=== PATIENT | male | born 2000 | race Caucasian/White ===

== ENCOUNTER 2025-04-10 07:25 | Emergency (ER) | payer BC, SELFPAY ==
[2025-04-10 07:48] VITALS: BP 147/80; PULSE 98; RESP 22; TEMP 36.7; O2SAT 99; BMI 27.9
--- NOTE | 2025-04-10 08:18 | CRLHL7_ITS ---
For Patients: As a result of the Century Cures Act, medical imaging exams and procedure reports are released immediately into your electronic medical record. You may view this report before your referring provider. If you have questions, please contact your health care provider. INDICATION: Chest pain. TECHNIQUE: Chest 2 views. COMPARISON: None FINDINGS: Tubes and devices: None. Lungs: Lungs are clear. No sign of infiltrate or mass. Pleura: No pleural effusion. No pneumothorax. Heart: Heart size and vasculature are normal in caliber and appearance. Faye and Mediastinum: No enlargement. Bones and soft tissues: No significant findings. IMPRESSION: Unremarkable chest. Dictated by Cody Sandoval MD @ 04/10/2025 8:39:57 AM (Electronically Signed)
--- NOTE | 2025-04-10 08:41 | ED_ITS ---
HPI - General Adult General Date Seen: 04/10/25 Chief complaint: Anxiety Stated complaint: Numbness, lightheaded Time Seen by Provider: 04/10/25 08:11 Source: patient Mode of arrival: ambulatory Limitations: no limitations History of Present Illness HPI narrative: Patient is a 25-year-old male presenting to emergency department for facial numbness, hand numbness, chest pain, shortness of breath,, lightheadedness. He states are he has a history of anxiety and was recently started anxiety medication week and half ago. Yesterday while he was driving he [place] felt short of breath and became tachypneic. Also notes he had numbness to his hands and face. That subsided and he was able go to work with no further issues. He states it occurred again and this time was worse. He states he was having chest pain along with it and felt lightheaded like he was going to pass out. He still states he feels mildly lightheaded but overall says symptoms are much improved. He states yesterday he was feeling anxious but today he denies anxiety. Has not noticed any fevers or chills. Denies symptoms like this before. No history of blood clots. No history of family clotting disorders. Denies history of her of recent surgeries, recent travel, cancer, hemoptysis, lower extremity swelling, hormone use. No family history of sudden unexpected . No other concerns noted at this time. Related Data Previous Rx's ?Medication ?Instructions ?Recorded hydroxyzine HCl 25 mg tablet 25 mg PO QID PRN #20 tabs 04/10/25 Allergies Allergy/AdvReac Type Severity Reaction Status Date / Time amoxicillin Allergy Intermediate Rash Verified 04/10/25 07:46 Review of Systems Status of ROS: Reports: 10 or more systems reviewed and unremarkable except as noted in History and below Exam Narrative: Exam Narrative: Const: Well-nourished, Well-developed, in mild distress Eyes: PERRL, no conjunctival injection, and symmetrical lids HENT: Atraumatic external nose and ears. Moist mucous membranes. Neck: Symmetric, trachea midline, No thyromegaly. CVS: RRR, No murmurs or gallops. Peripheral pulses 2+ and equal in all extremities RESP: Unlabored respiratory effort. Clear to auscultation bilaterally. GI: Nontender/Nondistended, No rebound or guarding. MSK:Extremities w/o deformity, Normal Active ROM Skin: Warm, Dry. No rashes or lesions. Neuro: Normal Muscle tone, No focal neurological deficits. Psych: Awake, Alert, & Oriented x3. Appropriate mood and affect. Const: Vital Signs, click to edit/add: Vital Signs - 24 hr 04/10/25 07:48 Temperature 98.1 F Pulse Rate [Pulse Oximeter] 98 Respiratory Rate 22 Blood Pressure [Ri ght Upper Arm] 147/80 H Pulse Oximetry 99 Oxygen Delivery Me thod Room Air Course Vital Signs Vital signs: Initial Vital Signs Temperature 98.1 F 04/10/25 07:48 Temperature Source Temporal Artery Scan 04/10/25 07:48 Pulse Rate 98 04/10/25 07:48 Respiratory Rate 22 04/10/25 07:48 Blood Pressure 147/80 H 04/10/25 07:48 Blood Pressure Mean 102 04/10/25 07:48 Pulse Oximetry 99 04/10/25 07:48 Oxygen Delivery Method Room Air 04/10/25 07:48 Vital Signs Temperature 98.1 F 04/10/25 07:48 Pulse Rate 98 04/10/25 07:48 Respiratory Rate 22 04/10/25 07:48 Blood Pressure 147/80 H 04/10/25 07:48 Pulse Oximetry 99 04/10/25 07:48 Oxygen Delivery Method Room Air 04/10/25 07:48 Temperature 98.1 F 04/10/25 07:48 Pulse Rate 98 04/10/25 07:48 Respiratory Rate 22 04/10/25 07:48 Blood Pressure 147/80 H 04/10/25 07:48 Pulse Oximetry 99 04/10/25 07:48 Oxygen Delivery Method Room Air 04/10/25 07:48 Medical Decision Making [facility] Narrative Medical decision making narrative: Patient is a 25-year-old male presenting for multiple complaints. His biggest concern was the facial numbness and hand numbness. That is improving. Considering this bilateral seems more likely related to hyperventilation and anxiety causing it. Low concern for intracranial or central nervous system issue. He also states he is having lightheadedness and chest pain. The differential diagnosis of chest pain is broad and includes common etiologies such as musculoskeletal strain, GERD, pneumonia, etc. More serious etiologies considered include PE, coronary artery disease, pneumothorax, aortic dissection, aortic aneurysm. Order EKG and troponin look for cardiac abnormalities. He is PERC negative and PE can not be ruled out. I have low concern for aortic dissection or aortic aneurysm with otherwise stable vital signs. Will do chest x-ray look for pneumonia or pneumothorax. Will also order CBC, BMP, magnesium, viral swabs. Chest x-ray returned showing no acute concerning abnormalities as interpreted by myself and the radiologist. EKG interpreted by myself shows no acute concerning abnormalities. Lab work returned showing no concerning abnormalities. Concerning chest pain started only few hours ago we will repeat the troponin at the 2 hour kimberly. Patient be signed out to my colleague. I do believe his symptoms were likely related to a panic attack based on his description. Will prescribe Vistaril. Lab Data Labs: Lab Results 04/10/25 04/10/25 Range/Units 08:18 08:40 WBC 10.07 (4.50-11.00) K/uL RBC 5.59 (4.30-5.90) m/uL Hgb 16.0 (13.5-17.5) gm/dL Hct 47.8 (37.0-53.0) % MCV 86 (80-100) fL MCH 29 (26-34) pg MCHC 34 (32-36) gm/dL RDW Coeff of Amairani 12.4 (11.5-15.5) % Plt Count 277 (140-440) K/uL Neut % (Auto) 87.1 H (42.0-72.0) % Lymph % (Auto) 7.1 L (20-44) % Lipscomb % (Auto) 5.2 (0.0-11.0) % Eos % (Auto) 0.0 (0.0-7.0) % Baso % (Auto) 0.2 (0.0-3.0) % Neut # (Auto) 8.80 H (1.7-7.0) K/uL Lymph # (Auto) 0.70 L (0.90-2.90) K/uL Lipscomb # (Auto) 0.50 (0.00-0.90) K/UL Eos # (Auto) 0.00 (0.00-0.50) K/uL Baso # (Auto) 0.02 (0.00-0.30) K/uL Abs Immat Gran (auto) 0.04 (0.00-0.30) K/uL Imm/Tot Granulo (auto) 0.4 % Sodium 141 (135-149) mmol/L Potassium 3.9 (3.6-5.1) mmol/L Chloride 107 (96-114) mmol/L Carbon Dioxide 24 (20-32) mmol/L Anion Gap 10 (7-15) mEq/L BUN 12 (5-24) mg/dL Creatinine 1.1 (0.5-1.5) mg/dL Estimated Creat Clear 123.76 Estimated GFR 96 ml/min Glucose 109 (60-115) mg/dL Calcium 9.8 (8.4-10.6) mg/dL Magnesium 2.0 (1.5-2.6) mg/dL POC Troponin I 0.01 (0.01-0.04) ng/ml Imaging Data Chest x-ray: Attestation: I have reviewed the pertinent imaging results. Radiologist's impression: Unremarkable chest. Dictated by Cody Sandoval MD @ 04/10/2025 8:39:57 AM ECG Data Attestation: I personally reviewed and interpreted this ECG as follows: Prior ECG tracings: not available for review Interpretation: Normal sinus rhythm with a rate of 93 beats per minute, normal intervals, normal axis, no ST or T-wave abnormalities. Discharge Plan Discharge Clinical Impression: Paresthesia, Atypical chest pain Patient Disposition: Home, Self-Care Condition: Stable Instructions: Noncardiac Chest Pain (ED), Panic Attack (ED) Additional Instructions: It seems likely her symptoms are related to a panic attack. I see no abnormalities on my exam. I will prescribe Vistaril which can help with panic attacks. If it does not help with his symptoms the recommend moving up your follow-up with your primary care provider about trying other medicines for panic attacks. Return to emergency department for new or worsening symptoms Prescriptions: New hydroxyzine HCl 25 mg tablet 25 mg PO QID PRNQty: 20 0RF Follow Up/Referrals: Provider,Not a Local [Primary Care Provider, Family Practice] Stand Alone Forms: [employer] Info Instructions
--- OUTSIDE RECORDS SUMMARY | 2025-04-10 08:50 | XMS_ITS | Clinical Summary ---
Author Organization [employer] [facility] Address [address] [place] [id number] Care Team Providers Care Professor Of Business Name Role Phone Moni Coronel MD Primary Care Provider + Allergies Active Allergy Reactions Criticality Noted Date Comments Amoxicillin *Unknown 09/06/2012 Medications azithromycin (ZITHROMAX) 250 mg tablet Take 2 tablets by mouth on day one, then take 1 tablet by mouth on days two through five. 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 60 tablet 04/30/2014 5:20 PM [employer]ING MACHINE OPERATOR 4 Active azithromycin (ZITHROMAX) 250 mg tablet Take 2 tablets by mouth on day 1, then take 1 tablet once daily on days 2 through 5. 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 30 tablet 07/11/2014 2:34 PM [employer] MACHINE OPERATOR 5 Active Adapalene 0.3 % gel Apply topically to affected area(s) at bedtime. 45 g 6 08/27/2014 3:13 PM CDT 5 Active trimethoprim-salcedo lfamethoxazole, 160-800 mg, (BACTRIM DS) tablet Take 1 tablet by mouth once daily. 60 tablet 6 09/20/2014 4:39 PM CDT 5 Active CONCERTA 36 mg Extended-Releas e tablet Take 1 tablet by mouth once daily in the morning. 30 tablet 08/10/2014 9:37 AM [employer] SE[employer] MACHINE OPERATOR 5 Active CONCERTA 36 mg Extended-Releas e tablet Take 1 tablet by mouth once daily. 30 tablet 10/05/2014 2:21 PM CDT 5 Active methylphenidate (CONCERTA) 36 mg Extended-Releas e tablet Take 1 tablet by mouth once daily in the morning. 30 tablet 02/18/2015 2:15 PM CDT 5 Active methylphenidate (CONCERTA) 36 mg Extended-Releas e tablet Take 1 tablet by mouth once daily in the morning. 30 tablet 03/27/2015 2:25 PM CDT 5 Active methylphenidate (CONCERTA) 36 mg Extended-Releas e tablet Take 1 tablet by mouth once daily in the morning. 30 tablet 05/08/2015 2:31 PM [facility] 5 Active citalopram (CELEXA) 20 mg tablet Take one-half tablet by mouth once daily for 7 days, then take 1 tablet once daily thereafter. 30 tablet 05/10/2015 10:40 AM [facility] 5 Active methylphenidate (CONCERTA) 18 mg Extended-Releas e tablet Take 1 tablet by mouth once daily in the morning along with a 27mg tablet. 30 tablet 05/10/2015 10:40 AM [facility] 5 Active methylphenidate (CONCERTA) 27 mg Extended-Releas e tablet Take 1 tablet by mouth once daily in the morning along with a 18mg tablet. 30 tablet 05/10/2015 10:40 AM [facility] 5 Active citalopram (CELEXA) 20 mg tablet Take 1 tablet by mouth once daily. 90 tablet 1 10/10/2015 2:01 PM CDT 5 Active methylphenidate (CONCERTA) 18 mg Extended-Releas e tablet Take 1 tablet by mouth once daily in the morning along with a 27mg tablet. 30 tablet 06/10/2015 2:04 PM [facility] 5 Active methylphenidate (CONCERTA) 27 mg Extended-Releas e tablet Take 1 tablet by mouth once daily in the morning along with a 18mg tablet. 30 tablet 06/10/2015 2:04 PM [facility] 5 Active methylphenidate (CONCERTA) 27 mg Extended-Releas e tablet Take 1 tablet by mouth once daily in the morning along with a 18mg tablet. 30 tablet 07/10/2015 2:18 PM [facility] 6 Active methylphenidate (CONCERTA) 18 mg Extended-Releas e tablet Take 1 tablet by mouth once daily in the morning along with a 27mg tablet. 30 tablet 07/10/2015 2:18 PM [facility] 6 Active methylphenidate (CONCERTA) 18 mg Extended-Releas e tablet Take 1 tablet by mouth once daily in the morning along with 27mg tablet. 30 tablet 08/08/2015 9:03 AM [facility] 6 Active methylphenidate (CONCERTA) 27 mg Extended-Releas e tablet Take 1 tablet by mouth once daily in the morning along with 18 mg tablet. 30 tablet 08/08/2015 9:03 AM [facility] 6 Active methylphenidate (CONCERTA) 27 mg Extended-Releas e tablet Take 1 tablet by mouth once daily in the morning with an 18 mg tablet. 30 tablet 09/09/2015 3:00 PM [facility] 6 Active methylphenidate (CONCERTA) 18 mg Extended-Releas e tablet Take 1 tablet by mouth once daily with a 27mg tablet in the morning. 30 tablet 09/09/2015 3:00 PM [facility] 6 Active methylphenidate (CONCERTA) 18 mg Extended-Releas e tablet Take 1 tablet by mouth once daily in the morning along with a 27 mg tablet. 30 tablet 10/10/2015 2:01 PM [facility] 6 Active methylphenidate (CONCERTA) 27 mg Extended-Releas e tablet Take 1 tablet by mouth once daily in the morning along with an 18 mg tablet. 30 tablet 10/10/2015 2:01 PM [facility] 6 Active methylphenidate (CONCERTA) 18 mg Extended-Releas e tablet Take 1 tablet by mouth each morning with 27 mg tablet. 30 tablet 01/16/2016 11:42 AM CDT 6 Active methylphenidate (CONCERTA) 27 mg Extended-Releas e tablet Take 1 tablet by mouth each morning with 18mg tablet 30 tablet 01/16/2016 11:42 AM CDT 6 Active azithromycin (ZITHROMAX) 250 mg tablet Take 2 tablets by mouth on day 1, then 1 tablet on days 2-5 As Directed for 5 days. 6 tablet 02/04/2016 9:59 AM CDT 6 Active methylphenidate (CONCERTA) 27 mg Extended-Releas e tablet Take 1 tablet by mouth once daily in the morning. 30 tablet 02/19/2016 9:02 AM T 6 Active methylphenidate (CONCERTA) 18 mg Extended-Releas e tablet Take 1 tablet by mouth once daily in the morning. 30 tablet 02/19/2016 9:02 AM T 6 Active citalopram (CELEXA) 20 mg tablet Take 1 tablet by mouth once daily. 90 tablet 1 09/01/2016 2:06 PM T 6 Active citalopram (CELEXA) 20 mg tablet Take 1 tablet by mouth once daily. 90 tablet 1 03/02/2017 3:05 PM T 7 Active methylphenidate HCl (CONCERTA) 18 mg Extended-Releas e tablet Take 1 tablet by mouth once daily along with a 27mg tablet. 30 tablet 03/02/2017 3:05 PM T 7 Active methylphenidate HCl (CONCERTA) 27 mg Extended-Releas e tablet Take 1 tablet by mouth once daily in the morning along with a 18mg tablet. 30 tablet 03/02/2017 3:05 PM T 7 Active citalopram (CELEXA) 40 mg tablet Take 1 tablet by mouth once daily for anxiety. 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 30 tablet 04/12/2017 4:06 PM [employer]ING MACHINE OPERATOR 7 Active FLUoxetine (PROZAC) 20 mg capsule Take 1 capsule by mouth once daily. 30 capsule 3 08/05/2017 2:50 PM [employer]ING MACHINE OPERATOR 7 Active methylphenidate HCl (RITALIN) 20 mg tablet Take 1 tablet by mouth once daily at 4pm to 5pm if needed for driving or homework. 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 30 capsule 2 10/28/2017 3:13 PM CDT 8 Active methylphenidate HCl (CONCERTA) 36 mg Extended-Releas e tablet Take 2 tablets by mouth once daily in the morning with breakfast. 60 tablet 10/28/2017 3:13 PM CDT 8 Active buPROPion (WELLBUTRIN SR) 100 mg Sustained-Relea se tablet Take 1 tablet by mouth 2 times daily. 60 tablet 01/05/2018 12:24 PM CDT 8 Active traZODone (DESYREL) 50 mg tablet Take 1 tablet by mouth at bedtime. 30 tablet 1 11/16/2017 3:23 PM CDT 8 Active buPROPion (WELLBUTRIN XL) 300 mg Extended-Releas e tablet Take 1 tablet by mouth once daily. THIS IS A DOSE INCREASE. 90 tablet 2 09/30/2018 2:51 PM CDT 8 Active methylphenidate HCl (CONCERTA) 36 mg Extended-Releas e tablet Take 1 tablet by mouth once daily Earliest Fill Date: 10/13/17 60 tablet 8 Active methylphenidate HCl (CONCERTA) 36 mg Extended-Releas e tablet Take 1 tablet by mouth once daily Earliest Fill Date: 11/12/17 60 tablet 8 Active lisdexamfetamin e (VYVANSE) 30 mg capsule Take 1 capsule by mouth every morning. 30 capsule 0 Active lisdexamfetamin e (VYVANSE) 30 mg capsule Take 1 capsule by mouth every morning 30 capsule 0 Active lisdexamfetamin e (VYVANSE) 30 mg capsule Take 1 capsule by mouth every morning 30 capsule 03/29/2020 3:37 PM CDT 0 Active lisdexamfetamin e (VYVANSE) 30 mg capsule Take 1 capsule by mouth every morning. 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 Gender Identity Not on file Sexual Orientation Not on file Obstetrics History Last Filed Vital Signs Vital Sign Reading Time Taken Comments Blood Pressure 155/82 12/01/2019 10:52 AM CDT Pulse 95 12/01/2019 10:52 AM CDT Temperature 37.3 C (99.1 F) 12/01/2019 10:51 AM CDT Respiratory Rate 16 12/01/2019 10:52 AM CDT Oxygen Saturation 99% 12/01/2019 10:52 AM CDT Inhaled Oxygen Concentration - - Weight 103.4 kg (228 lb) 12/01/2019 10:52 AM CDT Height 188 cm (6' 2) 12/01/2019 10:52 AM CDT Body Mass Index 29.27 12/01/2019 10:52 AM CDT Plan of Treatment Health Maintenance Due Date Last Done Comments Tetanus booster 2012 Depression screening for age 12+ 2013 HIV for age 15-65 2016 HPV series for age 9-45 (1 - Male 3-dose series) 2016 BMI (ht and wt on same day) for age 18+ 2019 Hepatitis C screening for ag e 18-79 2019 Hepatitis B series for 19+ ( 1 of 3 - 19+ 3-dose series) 2020 Influenza Vaccine (#1) 2025 RSV vaccine for adults or (1 - 1-dose 75+ series) 2076 Pneumococcal series for age 6-49 Aged Out No longer eligible based on patient's age to complete this topic Insurance [employer] * Guarantor: ENEIDA [place] Account Type Relation to Patient Date of Phone Billing Address Personal/Family Care Teams Professor Of Business Relationship Specialty Start Date End Date Moni Coronel MD [address] [place] [address] PCP - General Pediatric 05/10/14
[2025-04-10 08:52] LABS: Troponin, Point-of-Care* 0.01 ng/ml (0.01-0.04)
[2025-04-10 08:55] LABS: Hematocrit* 47.8 % (37.0-53.0); Hemoglobin* 16.0 gm/dL (13.5-17.5); Immature Granulocytes Abs Auto 0.04 K/uL (0.00-0.30); Immature Granulocytes Pct Auto 0.4 %; Mean Corpuscular HGB Conc 34 gm/dL (32-36); Mean Corpuscular Hemoglobin 29 pg (26-34); Mean Corpuscular Volume 86 fL (80-100); RDW Coefficient of Variation % 12.4 % (11.5-15.5); Red Blood Count* 5.59 m/uL (4.30-5.90); White Blood Count* 10.07 K/uL (4.50-11.00)
[2025-04-10 08:56] LABS: Lymphocytes Absolute Auto 0.70 K/uL (0.90-2.90); Slide Review Reflex No
[2025-04-10 09:12] LABS: Chloride* 107 mmol/L (96-114)
[2025-04-10 09:13] LABS: Potassium* 3.9 mmol/L (3.6-5.1); Sodium* 141 mmol/L (135-149)
[2025-04-10 09:15] LABS: Blood Urea Nitrogen* 12 mg/dL (5-24); Creatinine* 1.1 mg/dL (0.5-1.5); Est. Creatinine Clearance* 123.76; Estimated Glomerular Filt Rate 96 ml/min
[2025-04-10 09:16] LABS: Anion Gap 10 mEq/L (7-15); Calcium* 9.8 mg/dL (8.4-10.6); Carbon Dioxide* 24 mmol/L (20-32); Glucose* 109 mg/dL (60-115)
[2025-04-10 09:44] LABS: PCR FLU A Negative PCR FLU A (Negative); PCR FLU B Negative PCR FLU B (Negative); PCR RSV Negative PCR RSV (Negative); SARS PCR* Negative SARS-CoV-2 (Negative)
[2025-04-10 10:31] LABS: Troponin, Point-of-Care* 0.00 ng/ml (0.01-0.04)
[2025-04-10 10:49] VITALS: BP 136/78; PULSE 79; RESP 19; O2SAT 99
== END 2025-04-10 10:50 | disposition home or self-care (01) ==
PROVIDERS: Student in an Organized Health Care Education/Training Program; Emergency Provider Family Medicine
DX: R20.2 Paresthesia of skin (principal); R07.89 Other chest pain
CPT/HCPCS: 30300; 36415; 71046; 80048; 83735; 84484; 85025; 85379; 87631; 93005; 99284